=== PATIENT | female | born 1975 | race Hispanic/Latino ===

== ENCOUNTER 2018-03-28 10:08 | Day surgery (SDC) | payer BC ==
[~2018-03-28 10:08] MED LIST: WATER FOR IRRIG STERILE IR ONE
[2018-03-28] MEDS ORDERED: NACL 0.9% 1000 ML 1,000 ML IV SCH (11:00)
[2018-03-28] MEDS ORDERED: DIPRIVAN 10 MG/ML IV ONE ×3 (11:10)
--- NOTE | 2018-03-28 11:18 | Anesthesia Consultation ---
Anesthesia Consult and Med Hx Date of service: 03/28/18 - Airway Anesthetic Teeth Evaluation: Good ROM Head & Neck: Adequate Mental/Hyoid Distance: Adequate Mallampati Class: Class II Intubation Access Assessment: Probably Good - Pulmonary Exam CTA: Yes - Cardiac Exam Cardiac Exam: RRR - Pre-Operative Health Status ASA Pre-Surgery Classification: ASA3 Proposed Anesthetic Plan: MAC - Pulmonary Hx Smoking: No Hx Asthma: No Hx Respiratory Symptoms: No - Cardiovascular System Hx Hypertension: Yes (Took lisinopril this morning.) Hx Cardia Arrhythmia: No - Central Nervous System Hx Neuromuscular Disorder: No - Gastrointestinal Hx Gastroesophageal Reflux Disease: No - Endocrine Hx Renal Disease: No Hx Liver Disease: No Hx Non-Insulin Dependent Diabetes: Yes (FBS 126 g/dl this morning.) Hx Thyroid Disease: No - Hematic Hx Anemia: No - Other Systems Hx Alcohol Use: No Hx Obesity: Yes (BMI 48.4) - Additional Comments Anesthesia Medical History Comments: No GAC, No FHAC
[2018-03-28] MEDS ORDERED: VERSED ONE (13:02)
[2018-03-28] MEDS ORDERED: XYLOCAINE 2% UROJET ONE (13:03)
[2018-03-28] MEDS ORDERED: XYLOCAINE 2% UROJET UR ONE (13:06)
[2018-03-28] MEDS ORDERED: WATER FOR IRRIG STERILE ONE (13:26)
[2018-03-28] MEDS ORDERED: WATER FOR IRRIG STERILE IR ONE (13:26)
--- NOTE | 2018-03-28 13:26 | Operative Report ---
Operative Report Operative Report: Date of procedure: 03/28/2018 Procedure: Colonoscopy. Hemorrhoidal Band Ligation Attending physician: Marcus Ayoub MD Project Manager Entertainment [employer] Media: Marcus Ayoub MD Indication: Patient is a 42-year-old female who presents for colonoscopy. She has a history of constipation, rectal bleeding and rectal pain. A colonoscopy se rves to evaluate patients symptoms so that treatment may be directed based on the findings. Consent: Informed consent was obtained after advising the patient and family regarding nature of this procedure, its indications, potential benefits as well as possible complications including but not limited to bleeding perforation and adverse reaction to medication, infection as well as other cardiopulmonary complications. An informed written and verbal consent was then obtained after due opportunity was provided for questions and answers. Monitoring: Patient was monitored continuously with pulse oximetry and electrocardiographic recordings as well as blood pressure recordings. Vital signs remained stable throughout this procedure with no untoward events. Preoperative assessment: Patient was assessed immediately prior to this procedure for capacity to tolerate monitored anesthesia care and moderate sedation as well as general anesthesia. Patient's ASA classification is 2, Mallampati class is 2, Hyomental distance is 3. Instrument: Fujinon videocolonoscope. Fujinon video endoscope. Multiple band ligator: Speedband SuperView Super 7 (Fritter) Medications: Propofol given intravenously in divided doses. For details please refer to anesthesia records. Description of procedure: Patient was placed in the left lateral decubitus position after achieving sedation, a digital rectal examination was performed following which the colonoscope was introduced into the anal verge and advanced to the cecum which was identified by the cecal valve, the appendiceal orifice, as well as by the cecal strap and direct transillumination. The colonoscope was subsequently withdrawn with careful inspection of all mucosal surfaces. Patient tolerated this procedure well and was subsequently taken to the recovery room. The following findings were noted. Findings: Patient had mild diverticulosis involving the sigmoid colon and the descending colon. The rest of the colon to the cecum was normal, except for areas of retained liquid stool, . On the retroflex view at the anal verge, patient had prominent large friable internal hemorrhoids. After completing the colonoscopic examination, the Fujinon video endoscope was preloaded with the multiple band ligator. It was then reintroduced into the rectum after using lidocaine gel to numb the rectum. Following this, in a retroflexed view, multiple bands were applied over the internal hemorrhoids. In all, all 7 bands were applied due to size of internal hemorrhoids. All bands were applied above the dentate line. Patient tolerated the procedure well with no untoward events. Impression: Diverticular disease of the colon. Prominent friable Internal hemorrhoids, status post successful hemorrhoidal band ligation. Plan: Daily sitz baths. High-fiber diet. Patient to apply lidocaine ointment 5% per rectum every 6 hours as needed. Anusol HC suppositories per rectum every night. Patient to use stool softeners as needed. MiraLAX 17 g in 8 ounce glass of water has been prescribed. Tramadol 50 mg every 6 hours as needed for pain. Patient is scheduled for further outpatient follow-up. Patients further instructed that if he has persistent bleeding and or fevers to call the office immediately..
--- NOTE | 2018-03-28 13:27 | Discharge Summary ---
Short Stay Discharge Plan Activity: advance as tolerated Weight Bearing Status: Weight Bear as Tolerated Diet: regular Follow up with: MATTHEW ALMEIDA MD [Primary Care Provider] - 7 Days
[2018-03-28 13:54] VITALS: BP 130/70
--- NOTE | 2018-03-28 16:39 | History and Physical Report ---
History of Present Illness Date of examination: 03/28/18 Date of admission: 03/28/2018 Chief complaint: Constipation, rtectal pain , rectal bleeding History of present illness: 42 year old femal who presents with complaints of rectal bleeding, constipation and rectal pain. Patient now presents for evaluation with colonoscopy Medications and Allergies Allergies Allergy/AdvReac Type Severity Reaction Status Date / Time No Known Allergies Allergy Verified 03/28/18 10:27 Home Medications Medication Instructions Recorded Confirmed Last Taken Type Lisinopril 1 tab PO DAILY 03/28/18 03/28/18 03/28/18 History glipiZIDE [Glipizide] 1 tab PO DAILY 03/28/18 03/28/18 03/27/18 History metFORMIN [Glucophage] 1,000 mg PO BID 03/28/18 03/28/18 03/27/18 History Active Meds: Active Medications Sodium Chloride (Nacl 0.9% 1000 Ml) 1,000 mls @ 50 mls/hr IV DIRECT ALVARO Last Admin: 03/28/18 10:50 Dose: 50 mls/hr Documented by: Review of Systems All systems: negative Exam - Constitutional Vitals: Temp Pulse Resp BP Pulse Ox 98.4 F 91 H 21 130/70 98 03/28/18 13:13 03/28/18 13:53 03/28/18 13:53 03/28/18 13:53 03/28/18 13:53 General appearance: Present: no acute distress, well-nourished - EENT Eyes: Present: PERRL ENT: hearing intact, clear oral mucosa - Neck Neck: Present: supple, normal ROM - Respiratory Respiratory effort: normal Respiratory: bilateral: CTA - Cardiovascular Heart Sounds: Present: S1 & S2. Absent: rub, click - Extremities Extremities: pulses symmetrical, No edema Peripheral Pulses: within normal limits - Abdominal General gastrointestinal: Present: soft, non-tender, non-distended, normal bowel sounds Female genitourinary: Present: normal - Integumentary Integumentary: Present: clear, warm, dry - Musculoskeletal Musculoskeletal: gait normal, strength equal bilaterally - Psychiatric Psychiatric: appropriate mood/affect, intact judgment & insight - Neurologic Neurologic: CNII-XII intact, moves all extremities Results - Labs Labs: Abnormal lab results 03/28/18 Range/Units 11:05 POC Glucose 126 H (70-105) Assessment and Plan Constipation Rectal bleeding Rectal pain. Plan: Evaluate with a colonoscopy
== END 2018-03-28 10:09 | disposition home or self-care (01) ==
LOC: GIO 10:08
PROVIDERS: ATTEND Internal Medicine Gastroenterology
DX: K64.8 Other hemorrhoids (principal); K57.30 Diverticulosis of large intestine without perforation or abscess without bleeding; I10 Essential (primary) hypertension; E11.9 Type 2 diabetes mellitus without complications; E66.9 Obesity, unspecified; Z68.42 Body mass index [BMI] 45.0-49.9, adult; Z98.51 Tubal ligation status; Z98.890 Other specified postprocedural states; Z79.84 Long term (current) use of oral hypoglycemic drugs; Z79.899 Other long term (current) drug therapy
CPT/HCPCS: 45398; 81025; 82962; J2250; J2704; J7030

== ENCOUNTER 2018-04-25 11:19 | Day surgery (SDC) | payer BC ==
[~2018-04-25 11:19] MED LIST changes: +NACL 0.9% 1000 ML 1,000 ML IV SCH; -WATER FOR IRRIG STERILE IR ONE
[2018-04-25] MEDS ORDERED: VERSED ONE (13:40)
[2018-04-25] MEDS ORDERED: DIPRIVAN 10 MG/ML IV ONE ×2 (13:40)
[2018-04-25] MEDS ORDERED: WATER FOR IRRIG STERILE IR ONE (13:42)
--- NOTE | 2018-04-25 13:55 | Operative Report ---
Operative Report Operative Report: Date: 04/25/2018 Operative Report: Date of procedure: 04/25/2018 Procedure: Esophagogastroduodenoscopy with multiple mucosal biopsies. Attending physician: Marcus Ayoub MD White Goods Appliance Tech: Marcus Ayoub MD Indication: Patient is a 42 -year-old female who presented with a history of recurrent epigastric pain, heartburn, indigestiong. An upper endoscopy is done to assess patient, so that treatment may be directed based on the findings. Consent: Informed consent was obtained after advising the patient and family regarding nature of this procedure, its indications, potential benefits as well as possible complications including but not limited to bleeding perforation and adverse reaction to medication, infection as well as other cardiopulmonary complications. An informed written and verbal consent was then obtained after due opportunity was provided for questions and answers. Monitoring: Patient was monitored continuously with pulse oximetry and electrocardiographic recordings as well as blood pressure recordings. Vital signs remained stable throughout this procedure with no untoward events. Preoperative assessment: Patient was assessed immediately prior to this procedure for capacity to tolerate monitored anesthesia care and moderate sedation as well as general anesthesia. Patient's ASA classification is 3, Mallampati class is 2, Hyomental distance is 3. Instrument: Uevoc video endoscope Medications: Propofol given intravenously in divided doses. For details please refer to anesthesia records. Description of procedure: Patient was placed in the left lateral decubitus position after achieving sedation, the endoscope was introduced into the esophagus under direct vision. It was then advanced beyond the esophagus into the stomach and then beyond the stomach into the duodenum and to the second portion of the duodenum. It was subsequently withdrawn with careful inspection of all mucosal surfaces with the following findings. Findings: Patient had an irregular Z line at 38 cm. Patient had mild erosive esophagitis involving the distal esophagus.. Patient had antral erythema seen. Biopsies were obtained from the antrum for histopathology. The duodenum was normal to the second portion Impression: Irregular Z line. Mild erosive esophagitis Gastric antral erythema Plan: Continue treatment with proton pump inhibitors. Follow pathology report. Direct additional treatment based on the pathology report. Patient will be observed clinically. Additional recommendations will be made follow-up.
--- NOTE | 2018-04-25 13:56 | Discharge Summary ---
Short Stay Discharge Plan Activity: advance as tolerated Weight Bearing Status: Weight Bear as Tolerated Diet: regular Follow up with: MATTHEW ALMEIDA MD [Primary Care Provider] - 7 Days
[2018-04-25 14:30] VITALS: BP 120/71
--- NOTE | 2018-04-25 15:30 | Anesthesia Day of Surgery ---
Anesthesia Day of Surgery - Day of Surgery Patient Examined: Yes Patient H&P Reviewed: Yes Patient is NPO: Yes Beta Blockers: No Cardiac Clearance: No Pulmonary Clearance: No
--- NOTE | 2018-04-25 15:31 | Anesthesia Consultation ---
Anesthesia Consult and Med Hx Date of service: 04/25/18 - Airway Anesthetic Teeth Evaluation: Good ROM Head & Neck: Adequate Mental/Hyoid Distance: Adequate Mallampati Class: Class III Intubation Access Assessment: Probably Good - Pulmonary Exam CTA: Yes - Cardiac Exam Cardiac Exam: No Murmur - Pre-Operative Health Status ASA Pre-Surgery Classification: ASA3 Proposed Anesthetic Plan: MAC - Pulmonary Hx Smoking: No Hx Asthma: No Hx Respiratory Symptoms: No - Cardiovascular System Hx Hypertension: Yes Hx Cardia Arrhythmia: No - Central Nervous System Hx Neuromuscular Disorder: No Hx Back Pain: Yes - Gastrointestinal Hx Gastroesophageal Reflux Disease: No - Endocrine Hx Renal Disease: No Hx Liver Disease: No Hx Non-Insulin Dependent Diabetes: Yes (FBS 126 g/dl this morning.) Hx Thyroid Disease: No - Hematic Hx Anemia: Yes - Other Systems Hx Alcohol Use: No Hx Obesity: Yes
== END 2018-04-25 11:20 | disposition home or self-care (01) ==
LOC: GIO 11:19
PROVIDERS: ATTEND Internal Medicine Gastroenterology
DX: K29.50 Unspecified chronic gastritis without bleeding (principal); K31.89 Other diseases of stomach and duodenum; K20.9 Esophagitis, unspecified; E11.9 Type 2 diabetes mellitus without complications; I10 Essential (primary) hypertension; E66.9 Obesity, unspecified; Z68.42 Body mass index [BMI] 45.0-49.9, adult; Z98.51 Tubal ligation status; Z79.84 Long term (current) use of oral hypoglycemic drugs; Z79.899 Other long term (current) drug therapy; Z98.890 Other specified postprocedural states; Z90.49 Acquired absence of other specified parts of digestive tract; Z86.2 Personal history of diseases of the blood and blood-forming organs and certain disorders involving the immune mechanism
CPT/HCPCS: 43239; 81025; 82962; 88305; 88342; J2250; J2704; J7030